=== PATIENT | female | born 1940 | race Caucasian/White ===

== ENCOUNTER 2018-05-23 14:19 | Emergency (ER) | payer OTHER, BC ==
[~2018-05-23] VITALS: Ht 160 cm; Wt 53.5 kg
[~2018-05-23 14:19] MED LIST: ASPIR-TRIN325 M1 PO; FISH OIL500 MG PO; LIDODERM 5% P1 PATCH TP; LOPRESSOR25 MG PO; SKELAXIN800 MG PO; SYNTHROID75 MCG PO; ULTRAM50 MG PO
[2018-05-23 16:34] LABS: HEMATOCRIT 36.3 % (36.0-46.0); HEMOGLOBIN 12.4 G/DL (11.9-15.5); MCH 30.8 PG (29.0-34.0); MCHC 34.2 G/DL (30.0-36.0); MCV 90.1 FL (83-99); PLATELET COUNT 155 K/uL (156-360); RBC DIS.WIDTH-CV 12.9 % (11.8-14.6); RBC DIS.WIDTH-SD 42.6 % (39-53); RED BLOOD COUNT 4.03 M/uL (3.80-5.20); WHITE BLOOD COUNT 4.2 K/uL (4.1-10.2)
[2018-05-23 16:41] LABS: INTER. NORMALIZED RATIO 1.2
[2018-05-23 16:44] LABS: PTT 31.7 SEC (25-37)
[2018-05-23 16:46] LABS: ALBUMIN 3.6 g/dL (3.2-4.8); CHLORIDE 101 mEq/L (99-109); SODIUM 139 mEq/L (136-147)
[2018-05-23 16:47] LABS: MAGNESIUM 1.8 mg/dL (1.3-2.7)
[2018-05-23 16:48] LABS: GLUCOSE 83 mg/dL (70-99)
[2018-05-23 16:49] LABS: TOTAL PROTEIN 6.4 g/dL (6.4-8.3)
[2018-05-23 16:50] LABS: TOTAL BILIRUBIN 0.6 mg/dL (0.0-1.0)
[2018-05-23 16:51] LABS: SERUM ETHYL ALCOHOL < 10 mg/dL
[2018-05-23 16:52] LABS: ALKALINE PHOSPHATASE 58 IU/L (3-129); CREATININE 0.8 mg/dL (0.6-1.3); GFR ESTIMATE (CALCULATED) > 59 mL/min/
[2018-05-23 16:53] LABS: UREA NITROGEN (BUN) 17 mg/dL (9-23)
[2018-05-23 16:54] LABS: AST (GOT) 25 IU/L (2-34)
[2018-05-23 16:55] LABS: ALT (GPT) 19 IU/L (3-49)
[2018-05-23 16:59] LABS: TROP-I INTERPRETATION NEGATIVE; TROPONIN-I 0.01 ng/mL (0.0-0.30)
[2018-05-23] MEDS ORDERED: CARDIZEM CD120 M1 PO (17:02)
[2018-05-23 17:32] VITALS: BP 138/69
[2018-05-23 18:31] LABS: THYROTROPIN (TSH) 0.41 MIU/L (0.4-5.5)
== END 2018-05-23 17:34 | disposition home or self-care (01) ==
LOC: EME 14:19
PROVIDERS: Emergency Medicine
DX: I47.1 Supraventricular tachycardia (principal); I45.2 Bifascicular block; E03.9 Hypothyroidism, unspecified; R73.03 Prediabetes; I10 Essential (primary) hypertension; Z87.442 Personal history of urinary calculi; Z85.828 Personal history of other malignant neoplasm of skin; Z88.5 Allergy status to narcotic agent
CPT/HCPCS: 71045; 80053; 83735; 84443; 84484; 85027; 85610; 85730; 86850; 86900; 86901; 93005; 99281; 99285; G0480